=== PATIENT | male | born 1945 | race Two or more races ===

== ENCOUNTER 2017-03-25 19:35 | Inpatient (IN) | payer BC ==
[~2017-03-25] VITALS: Ht 188 cm; Wt 98.0 kg
[2017-03-25 21:22] LABS: Basophils # (auto) 0 uL; Basophils % (auto) 0.6 % (0.0-2.0); Eosinophils # (auto) 0.3 uL; Eosinophils % (auto) 3.6 % (0.0-7.0); Hematocrit 43.1 % (41.0-53.0); Hemoglobin 14.1 g/dL (13.5-17.5); Lymphocytes # (auto) 2.1 uL; Lymphocytes % (auto) 25.9 % (10.0-50.0); Mean Corpuscular Hemoglobin 30.5 pg (28.0-32.0); Mean Corpuscular Hgb Conc. 32.9 g/dL (32.0-36.0); Mean Corpuscular Volume 92.7 fL (80.0-100.0); Monocytes # (auto) 0.7 uL; Monocytes % (auto) 8.4 % (0.0-12.0); Neutrophils # (auto) 4.9 uL; Neutrophils % (auto) 61.5 % (37.0-80.0); Platelet Count (auto) 212 10^3/uL (140-450); Red Cell Distribution Width 14.2 % (11.6-16.0); White Blood Cell 7.9 10^3/uL (4.4-10.8)
[2017-03-25 21:39] LABS: Anion Gap 11 (5-15); Aspartate Aminotransferase 17 U/L (15-37); Blood Urea Nitrogen 23 mg/dL (7-18); Calcium 7.9 mg/dL (8.5-10.1); Carbon Dioxide 24 mmol/L (21-32); Chloride 109 mmol/L (98-107); GFR African American 119 mL/min; GFR Non-African American 98 mL/min; Glucose 125 mg/dL (74-106); Magnesium 2.2 mg/dL (1.6-2.6); Potassium 3.6 mmol/L (3.5-5.1); Sodium 144 mmol/L (136-145)
[2017-03-25 21:44] LABS: Alkaline Phosphatase 86 U/L (45-117); Bilirubin, Total 0.1 mg/dL (0.2-1.0); Total Protein 7.1 g/dL (6.4-8.2)
[2017-03-25] MEDS ORDERED: ASPirin 81 mg TAB PO ONE (22:30)
[2017-03-26] MEDS ORDERED: SIMV-8 PO (01:41)
[2017-03-26] MEDS ORDERED: TAMS0.4C36 PO (01:41)
[2017-03-26] MEDS ORDERED: PHE100C PO (01:41)
[2017-03-26] MEDS ORDERED: HYDR12.56 PO (01:41)
[2017-03-26] MEDS ORDERED: CARV25TA55 PO (01:41)
[2017-03-26] MEDS ORDERED: BENA10TA3 PO (01:41)
[2017-03-26] MEDS ORDERED: NITROGLYCERIN 0.4 MG SL TAB SL PRN (01:45)
[2017-03-26] MEDS ORDERED: MORPHINE SULF INJ 2 MG/ML SYRINGE 1ML IV PRN (01:45)
[2017-03-26 03:00] VITALS: BP 137/88
[2017-03-26 05:00] VITALS: BP 137/88
[2017-03-26 09:00] VITALS: BP 154/115
[2017-03-26] MEDS ORDERED: ASPirin-EC 81 mg tab PO SCH (10:00)
[2017-03-26] MEDS ORDERED: CARVEDILOL 12.5 MG TAB PO SCH (10:00)
[2017-03-26] MEDS ORDERED: TAMSULOSIN HYDROCHLORIDE 0.4 MG CAP PO SCH (10:00)
[2017-03-26] MEDS ORDERED: HCTZ 25 MG TAB PO SCH (10:00)
[2017-03-26] MEDS ORDERED: BENAZEPRIL HCL 10 MG TAB PO SCH (10:00)
[2017-03-26 13:00] VITALS: BP 143/82
[2017-03-26 15:46] VITALS: BP 154/115
[2017-03-26 17:00] VITALS: BP 144/89
[2017-03-26] MEDS ORDERED: PHENYTOIN SODIUM 100 MG CAP PO SCH (22:00)
[2017-03-26] MEDS ORDERED: ATORVASTATIN 20 MG TAB PO SCH ×2 (22:00)
== END 2017-03-26 18:30 | disposition home health service (06) | DRG 57 ==
LOC: EDBD 19:35 → ER 19:41 → TELE 19:42 → TELE-WESTW 03-26 02:50
PROVIDERS: ADMIT Emergency Medicine; ATTEND Internal Medicine Geriatric Medicine
DX: I69.354 Hemiplegia and hemiparesis following cerebral infarction affecting left non-dominant side (principal); E78.5 Hyperlipidemia, unspecified; G93.0 Cerebral cysts; G93.89 Other specified disorders of brain; H91.90 Unspecified hearing loss, unspecified ear; I10 Essential (primary) hypertension; S49.92XA Unspecified injury of left shoulder and upper arm, initial encounter; W18.30XA Fall on same level, unspecified, initial encounter; Y93.89 Activity, other specified; Y92.89 Other specified places as the place of occurrence of the external cause; Y99.8 Other external cause status
CPT/HCPCS: 36415; 70450; 80053; 83735; 84484; 85025; 93005; 94761; 95819

== ENCOUNTER 2017-08-09 11:20 | Observation (INO) | payer BC ==
[~2017-08-09] VITALS: Ht 188 cm; Wt 98.9 kg
[~2017-08-09 11:20] MED LIST: BENA10TA9 PO; CARV25TA55 PO; HYDR12.56 PO; PHE100C PO; SIMV-8 PO; TAMS0.4C36 PO
[2017-08-09 13:30] LABS: Basophils # (auto) 0.1 uL; Basophils % (auto) 1.2 % (0.0-2.0); Eosinophils # (auto) 0.2 uL; Hematocrit 41.9 % (41.0-53.0); Hemoglobin 13.9 g/dL (13.5-17.5); Lymphocytes # (auto) 1.7 uL; Mean Corpuscular Hemoglobin 29.9 pg (28.0-32.0); Mean Corpuscular Hgb Conc. 33.2 g/dL (32.0-36.0); Mean Corpuscular Volume 90.1 fL (80.0-100.0); Mean Platelet Volume 8.3 fL (6.9-10.8); Monocytes # (auto) 0.5 uL; Monocytes % (auto) 8.7 % (0.0-12.0); Neutrophils # (auto) 2.9 uL; Neutrophils % (auto) 54.1 % (37.0-80.0); Nucleated Red Blood Cells % 0.1 %; Platelet Count (auto) 180 10^3/uL (140-450); Red Cell Distribution Width 15.2 % (11.8-14.3); White Blood Cell 5.4 10^3/uL (4.4-10.8)
[2017-08-09 13:52] LABS: Potassium 3.8 mmol/L (3.5-5.1)
[2017-08-09 13:53] LABS: Albumin 3.5 g/dL (3.4-5.0); Bilirubin, Total 0.3 mg/dL (0.2-1.0); Calcium 8.4 mg/dL (8.5-10.1); Total Protein 7.3 g/dL (6.4-8.2)
[2017-08-09 15:11] LABS: Magnesium 2.3 mg/dL (1.6-2.6)
[2017-08-09 15:21] LABS: Acetaminophen < 2.0 ug/mL (10-30); Salicylate < 1.7 mg/dL (2.8-20.0)
[2017-08-09 16:54] LABS: Urine Bilirubin Negative (Negative); Urine Blood Negative /uL (Negative); Urine Color Yellow (Yellow); Urine Glucose Normal (Normal); Urine Ketone Negative (Negative); Urine Mucus FEW (None Seen); Urine Nitrite POSITIVE (Negative); Urine RBC 1 /hpf (0 - 3); Urine Squamous Epithelial Cell FEW /hpf (<5); Urine Urobilinogen Normal (Negative); Urine pH 6.5 (5.0-8.0)
[2017-08-09] MEDS ORDERED: cefTRIAXone SOD 1,000 MG VL IM ONE (19:00)
[2017-08-09] MEDS ORDERED: LIDOCAINE 1% HCL (LOCAL ANESTH.) INJ 20ML MDV ONE (19:08)
[2017-08-09] MEDS ORDERED: CIPROFLOXACIN HCL 500 MG TAB PO ONE (22:00)
[2017-08-10] MEDS ORDERED: CIPROFLOXACIN HCL 500 MG TAB PO SCH (10:00)
[2017-08-10 12:30] VITALS: BP 150/92
== END 2017-08-10 13:01 | disposition home or self-care (01) | DRG 880 ==
LOC: ER 11:20 → OVERFLOW 15:04 → ER 08-10 13:01
PROVIDERS: ADMIT Family Medicine; ATTEND Family Medicine
DX: R45.851 Suicidal ideations (principal); I63.9 Cerebral infarction, unspecified; N30.00 Acute cystitis without hematuria; I11.0 Hypertensive heart disease with heart failure; F32.9 Major depressive disorder, single episode, unspecified; F41.9 Anxiety disorder, unspecified; K21.9 Gastro-esophageal reflux disease without esophagitis; Z82.49 Family history of ischemic heart disease and other diseases of the circulatory system; Z86.73 Personal history of transient ischemic attack (TIA), and cerebral infarction without residual deficits; Z87.891 Personal history of nicotine dependence
CPT/HCPCS: 36415; 71010; 80053; 80307; 80320; 80329; 81001; 83735; 85025; 93005; 99285; G0378; J0696; J2001

== ENCOUNTER 2018-09-30 14:11 | Emergency (ER) | payer BC ==
[~2018-09-30] VITALS: Ht 175.3 cm; Wt 86.2 kg
[~2018-09-30 14:11] MED LIST changes: +ASPI81CH43 GT; +ASPI81CH43 PO; +CLOP75TA28 PO; +HCTZ25T PO; +OMEP-263 PO; +PANT40T PO; +PERCOT PO; +PHEN50CH4 OR; +SERT-135 PO
[2018-09-30 15:08] LABS: Alanine Aminotransferase 15 U/L (16-61); Albumin 3.6 g/dL (3.4-5.0); Anion Gap 5 (5-15); Aspartate Aminotransferase 10 U/L (15-37); BUN/Creatinine Ratio 27.8; Blood Urea Nitrogen 22 mg/dL (7-18); Calcium 8.2 mg/dL (8.5-10.1); Carbon Dioxide 30 mmol/L (21-32); Chloride 104 mmol/L (98-107); GFR African American 124 mL/min; GFR Non-African American 102 mL/min; Glucose 116 mg/dL (74-106); Sodium 139 mmol/L (136-145)
[2018-09-30 15:13] LABS: Alkaline Phosphatase 93 U/L (45-117); Bilirubin, Total 0.3 mg/dL (0.2-1.0); Total Protein 7.3 g/dL (6.4-8.2)
[2018-09-30 15:14] LABS: Basophils # (auto) 0.1 uL; Basophils % (auto) 0.9 % (0.0-2.0); Eosinophils # (auto) 0.2 uL; Eosinophils % (auto) 2.6 % (0.0-7.0); Hematocrit 44.1 % (41.0-53.0); Hemoglobin 14.6 g/dL (13.5-17.5); Lymphocytes # (auto) 1.2 uL; Lymphocytes % (auto) 17.6 % (10.0-50.0); Mean Corpuscular Hemoglobin 30.9 pg (28.0-32.0); Mean Corpuscular Hgb Conc. 33.2 g/dL (32.0-36.0); Mean Corpuscular Volume 93.2 fL (80.0-100.0); Monocytes # (auto) 0.5 uL; Monocytes % (auto) 7.1 % (0.0-12.0); Neutrophils # (auto) 4.7 uL; Neutrophils % (auto) 71.8 % (37.0-80.0); Nucleated Red Blood Cells % 0.2 %; Platelet Count (auto) 177 10^3/uL (140-450); Red Blood Cells 4.73 10^6/uL (4.5-5.90); Red Cell Distribution Width 15.5 % (11.8-14.3); White Blood Cell 6.6 10^3/uL (4.4-10.8)
[2018-09-30 15:17] VITALS: BP 142/54
[2018-09-30 15:20] LABS: INR 1.06 (0.9-1.15); Partial Thromboplastin Time 25.6 sec (23.78-33.04); Prothrombin Time 11.3 sec (9.27-12.13)
== END 2018-09-30 17:05 | disposition home or self-care (01) ==
LOC: ER 14:11 → EDBD 14:11 → EDUNIT# 14:11 → ER 17:05
DX: S76.012A Strain of muscle, fascia and tendon of left hip, initial encounter (principal); G81.94 Hemiplegia, unspecified affecting left nondominant side; I11.0 Hypertensive heart disease with heart failure; I50.9 Heart failure, unspecified; K21.9 Gastro-esophageal reflux disease without esophagitis; Z86.73 Personal history of transient ischemic attack (TIA), and cerebral infarction without residual deficits; Z87.891 Personal history of nicotine dependence; Z88.0 Allergy status to penicillin; Z79.82 Long term (current) use of aspirin; Z79.899 Other long term (current) drug therapy; W01.0XXA Fall on same level from slipping, tripping and stumbling without subsequent striking against object, initial encounter; Y93.01 Activity, walking, marching and hiking; Y92.098 Other place in other non-institutional residence as the place of occurrence of the external cause; Y99.8 Other external cause status
CPT/HCPCS: 36415; 70450; 72192; 80053; 83880; 84484; 85025; 85610; 85730